=== PATIENT | female | born 1940 | race Caucasian/White ===

== ENCOUNTER 2017-04-30 21:40 | Inpatient (IN) | payer MEDICARE ==
[~2017-04-30] VITALS: Ht 160 cm; Wt 68.6 kg
[~2017-04-30 21:40] MED LIST: ALLOPURINOL100 MG PO; CLONIDINE0.1 MG PO; COLCHICINE0.6 M2 PO; DIOVAN HCT320 MG/25 PO; ELAVIL25 MG PO; FLOMAX0.4 M1 PO; GABAPENTIN300 MG PO; HYDROCHLOROT25 MG PO; LABETALOL100 MG PO; LEVAQUIN250 MG PO; LIPITOR20 MG PO; MESTINON60 MG PO; PERCOCET 10/31 COMBO PO; PLENDIL PO; PREDNISONE20 MG PO; ROPINIROLE0.5 MG PO; TIZANIDINE2 MG PO
[2017-04-30 22:51] LABS: HEMOGLOBIN 11.2 g/dl (12.0-16.0); IMMATURE GRANULOCYTES 0.2 % (0.0-1.0); MEAN CELL VOLUME 90.7 fL CALC (80.0-100.0); MEAN CORPUSCULAR HGB 29.9 pG CALC (26.0-32.0); MEAN CORPUSCULAR HGB CONC 32.9 g/L CALC (32.0-36.0); NEUT# 2.67 thou/uL (2.00-7.15); RED BLOOD COUNT 3.75 mill/uL (4.20-5.60); RED CELL DISTRI WIDTH 13.2 % (11.5-15.5)
[2017-04-30 23:09] LABS: ALBUMIN 4.8 g/dL (3.2-5.0); ALKALINE PHOSPHATASE 98 u/l (38-126); ANION GAP 17 (6-22 (CALC)); BILIRUBIN, TOTAL 0.6 mg/dL (0.0-1.4); BUN 35 mg/dL (8-23); BUN/CREATININE RATIO 23 (12-20 (CALC)); CALCIUM 9.8 mg/dL (8.4-10.2); CARBON DIOXIDE 25 mmol/l (22-30); CHLORIDE 103 mmol/l (95-108); CREATININE 1.6 mg/dL (0.5-1.0); GFR 32 ML/MIN (>=60 (CALC)); GFR FOR AFR.AMER. 38 ML/MIN (>=60 (CALC)); GLUCOSE 155 mg/dL (82-115); POTASSIUM 4.1 mmol/l (3.5-5.1); SGOT/AST 34 u/l (9-36); SGPT/ALT 34 u/l (11-66); SODIUM 141 mmol/l (137-146); TOTAL PROTEIN 7.3 g/dL (6.3-8.2)
[2017-04-30 23:10] LABS: ACT PARTIAL THROMBO TIME 24.2 SECONDS (20.0-32.5); PROTHROMBIN TIME 10.2 SECONDS (9.0-12.5)
[2017-04-30 23:21] LABS: MYOGLOBIN 43 ng/mL (0 - 62)
[2017-05-01] MEDS ORDERED: MS CONTIN30 MG PO (00:12)
[2017-05-01 00:48] LABS: URINE BILIRUBIN - DIPSTICK NEGATIVE (NEGATIVE); URINE BLOOD DIPSTICK NEGATIVE (NEGATIVE); URINE CLARITY CLEAR; URINE COLOR YELLOW; URINE GLUCOSE - DIPSTICK NEGATIVE (NEGATIVE); URINE KETONE NEGATIVE (NEGATIVE); URINE LEUK ESTERASE TRACE (NEGATIVE); URINE NITRITE - DIPSTICK NEGATIVE (Negative); URINE PH 5.5 (4.5-8.0); URINE PROTEIN - DIPSTICK NEGATIVE (NEG-TRACE); URINE SPECIFIC GRAVITY <=1.005; URINE UROBILINOGEN - DIPSTICK 0.2 E.U./dL (0.2)
[2017-05-01 02:15] VITALS: BP 156/68
[2017-05-01 08:14] VITALS: BP 187/89
[2017-05-01 10:37] LABS: CHOLESTEROL HDL RATIO 4.6 (<4.4 (CALC))
[2017-05-01 11:00] VITALS: BP 149/74
[2017-05-01] MEDS ORDERED: OXYCODONE15 MG PO (11:16)
[2017-05-01] MEDS ORDERED: TYLENOL500 MG PO (11:17)
[2017-05-01] MEDS ORDERED: DIOVAN320 MG PO (11:19)
[2017-05-01 16:04] VITALS: BP 173/81
[2017-05-01 17:58] VITALS: BP 193/84
[2017-05-01] MEDS ORDERED: ZITHROMAX500 MG PO (19:12)
[2017-05-01] MEDS ORDERED: VANTIN200 M1 PO (19:12)
[2017-05-01 19:25] VITALS: BP 179/77
== END 2017-05-01 19:45 | disposition home or self-care (01) | DRG 195 ==
LOC: ED 21:40 → ED-I 05-01 00:40 → ED 05-01 01:30 → MS2 05-01 01:31 → ICU 05-01 01:31 → MS2 05-01 07:20
PROVIDERS: Emergency Medicine; Nurse Practitioner Family; ADMIT Internal Medicine; ATTEND Internal Medicine
DX: J18.9 Pneumonia, unspecified organism (principal); G70.00 Myasthenia gravis without (acute) exacerbation; N18.3 Chronic kidney disease, stage 3 (moderate); I12.9 Hypertensive chronic kidney disease with stage 1 through stage 4 chronic kidney disease, or unspecified chronic kidney disease; M06.9 Rheumatoid arthritis, unspecified; L93.0 Discoid lupus erythematosus; M79.7 Fibromyalgia; D63.1 Anemia in chronic kidney disease; G89.4 Chronic pain syndrome; R19.7 Diarrhea, unspecified